=== PATIENT | male | born 1980 | race Caucasian/White ===

== ENCOUNTER 2022-10-15 08:11 | Inpatient (IN) ==
[2022-10-15 09:02] LABS: ABS Lymphocytes 1.3 10^3/uL (1.0-4.8); ABS Monocytes 0.6 10^3/uL (0.0-1.1); ABS Neutrophils 4.8 10^3/uL (1.5-7.6); ABS Nucleated RBC 0.01 10^3/ul; Eosinophil % 0.6 %; Hematocrit 42.4 % (38-53); Hemoglobin 14.3 g/dL (13.2-16.3); Lymphocyte % 18.9 %; Mean Corpuscular Hemoglobin 28.7 pg (27-33); Mean Corpuscular Hgb Conc 33.8 g/dL (31-36); Mean Platelet Volume 7.9 fL (7.5-11.2); Nucleated Red Blood Cells % 0.1 /100 WBC (0.0-0.4); Platelet Count 312 10^3/uL (150-450); Red Blood Count 4.99 10^6/uL (4.06-5.63); Red Cell Distribution Width 13.4 % (12-17); White Blood Count 6.8 10^3/uL (3.6-10.2)
[2022-10-15 09:17] LABS: ALT 68 U/L (7-52); AST 18 U/L (13-39); Albumin 4.7 g/dL (3.2-5.2); Albumin/Globulin Ratio 1.8 (1-3); Alkaline Phosphatase 54 U/L (35-149); Anion Gap 8 mmol/L (2-16); Blood Urea Nitrogen 12 mg/dL (6-24); CO2 Carbon Dioxide 26 mmol/L (22-32); Calcium 9.4 mg/dL (8.6-10.3); Chloride 105 mmol/L (101-111); Creatinine, Serum 1.11 mg/dL (0.67-1.17); Globulin 2.6 g/dL (2-4); Glucose 118 mg/dL (70-100); Potassium 3.3 mmol/L (3.5-5.0); Sodium 139 mmol/L (135-145); Total Protein 7.3 g/dL (6.4-8.9); eGFR CKD-EPI 86.1 (>60)
[2022-10-15 09:53] LABS: Acetaminophen < 15 mcg/mL; Alcohol, S < 13 mg/dL (<13)
[2022-10-15 10:08] LABS: TSH Ultra Thyroid Stim Horm 2.75 mcIU/mL (0.34-5.60)
[2022-10-15 10:18] LABS: Urine Benzodiazepine Screen None Detected (None Detect); Urine Cannabinoids Screen Presumptive Positive (None Detect); Urine Opiates Screen None Detected (None Detect)
[2022-10-15] MEDS ORDERED: LORazepam 2 mg VIAL 1 ml IM ONE (10:28)
[2022-10-15] MEDS ORDERED: Lorazepam PYXIS KEY PRN ×3 (10:28→15:28)
[2022-10-15] MEDS ORDERED: Haloperidol 5 mg/ml SDV IV/IM 5 MG/ML AMP IM ONE (10:28)
[2022-10-15] MEDS ORDERED: LORazepam 2 mg VIAL 1 ml IV PUSH ONE ×2 (14:25→15:28)
[2022-10-15] MEDS ORDERED: Al Hydrox/Mg Hydrox/Simet LIQ 30 ML UDC PO PRN (18:00)
[2022-10-15] MEDS ORDERED: OLANZapine 5 mg TAB *ODT PO PRN (18:02)
[2022-10-15] MEDS: Nicotine GUM 2MG FRUIT FLAVOR PO PRN (20:52)
[2022-10-15] MEDS ORDERED: OLANZapine 10 mg TAB*ODT PO PRN (23:24)
[2022-10-16] MEDS ORDERED: Haloperidol 5 mg/ml SDV IV/IM 5 MG/ML AMP ONE (05:47)
[2022-10-16] MEDS ORDERED: Haloperidol 5 mg/ml SDV IV/IM 5 MG/ML AMP IM ONE (06:00)
[2022-10-16] MEDS: Vitamin THERAPEUTIC TAB PO SCH (10:13)
[2022-10-16] MEDS ORDERED: Potassium Chlor 20 meq TAB.ER PO ONE (10:41)
[2022-10-16] MEDS: OLANZapine 10 mg TAB*ODT PO PRN ×2 (11:03→22:01)
[2022-10-17 07:54] LABS: Albumin 4.3 g/dL (3.2-5.2); Albumin/Globulin Ratio 1.7 (1-3); Calcium 9.3 mg/dL (8.6-10.3); Creatinine, Serum 0.92 mg/dL (0.67-1.17); Globulin 2.6 g/dL (2-4); Potassium 3.5 mmol/L (3.5-5.0); Total Bilirubin 0.9 mg/dL (0.2-1.0); Total Protein 6.9 g/dL (6.4-8.9); eGFR CKD-EPI 107.8 (>60)
[2022-10-17 07:55] LABS: HDL Cholesterol 50.6 mg/dL
[2022-10-17] MEDS: Vitamin THERAPEUTIC TAB PO SCH (08:23)
[2022-10-17] MEDS: OLANZapine 10 mg TAB*ODT PO PRN (10:22)
[2022-10-17] MEDS: Nicotine PATCH 21 MG/24 HR PATCH TRANSDERM SCH (14:07)
[2022-10-17] MEDS: Nicotine GUM 2MG FRUIT FLAVOR PO PRN ×2 (16:03→19:49)
[2022-10-18] MEDS: Nicotine PATCH 21 MG/24 HR PATCH TRANSDERM SCH (09:56)
[2022-10-18] MEDS: Vitamin THERAPEUTIC TAB PO SCH (09:56)
[2022-10-18] MEDS: OLANZapine 10 mg TAB*ODT PO PRN (15:55)
[2022-10-18] MEDS: Nicotine GUM 2MG FRUIT FLAVOR PO PRN (19:28)
[2022-10-19] MEDS: Nicotine PATCH 21 MG/24 HR PATCH TRANSDERM SCH (08:19)
[2022-10-19] MEDS: Vitamin THERAPEUTIC TAB PO SCH (10:03)
[2022-10-19] MEDS: OLANZapine 10 mg TAB*ODT PO PRN (13:45)
[2022-10-19] MEDS: Nicotine GUM 2MG FRUIT FLAVOR PO PRN ×2 (15:59→18:34)
[2022-10-20] MEDS: Nicotine PATCH 21 MG/24 HR PATCH TRANSDERM SCH ×2 (06:51→11:13)
[2022-10-20] MEDS: Vitamin THERAPEUTIC TAB PO SCH ×2 (06:52→11:11)
[2022-10-20] MEDS: OLANZapine 10 mg TAB*ODT PO PRN (08:53)
[2022-10-20] MEDS: Nicotine GUM 2MG FRUIT FLAVOR PO PRN ×2 (15:19→19:19)
[2022-10-21] MEDS: Nicotine PATCH 21 MG/24 HR PATCH TRANSDERM SCH (07:19)
[2022-10-21] MEDS: Vitamin THERAPEUTIC TAB PO SCH (07:20)
[2022-10-21 11:55] VITALS: BP 125/81
== END 2022-10-21 14:27 | disposition home or self-care (01) | DRG 776 ==
LOC: ED 08:11 → BSU 19:08
PROVIDERS: ADMIT Student in an Organized Health Care Education/Training Program; ATTEND Student in an Organized Health Care Education/Training Program